=== PATIENT | female | born 1985 | race Caucasian/White ===

== ENCOUNTER 2021-04-15 13:35 | Emergency (ER) | payer OTHER ==
[~2021-04-15] VITALS: Ht 167.6 cm; Wt 113.4 kg
[~2021-04-15 13:35] MED LIST: BENTYL10 MG PO; LEVAQUIN500 MG PO; OMEPRAZOLE40 MG PO
== END 2021-04-15 16:40 | disposition home or self-care (01) ==
LOC: FSED 13:51
DX: O20.0 Threatened abortion (principal)
CPT/HCPCS: 76817; 99283

== ENCOUNTER 2022-02-06 07:35 | Emergency (ER) | payer OTHER ==
[~2022-02-06] VITALS: Ht 172.7 cm; Wt 124.7 kg
== END 2022-02-06 08:55 | disposition home or self-care (01) ==
LOC: FSED 08:10
DX: M79.661 Pain in right lower leg (principal); S86.811A Strain of other muscle(s) and tendon(s) at lower leg level, right leg, initial encounter; X50.1XXA Overexertion from prolonged static or awkward postures, initial encounter; Y92.89 Other specified places as the place of occurrence of the external cause; I10 Essential (primary) hypertension
CPT/HCPCS: 99283